=== PATIENT | male | born 1975 ===

== ENCOUNTER 2018-08-17 14:45 | Emergency (ER) | payer OTHER ==
[~2018-08-17] VITALS: Ht 172.7 cm; Wt 77.1 kg
== END 2018-08-17 20:26 | disposition home or self-care (01) ==
LOC: ER 14:45
DX: S43.084A Other dislocation of right shoulder joint, initial encounter (principal); X58.XXXA Exposure to other specified factors, initial encounter; Y93.89 Activity, other specified; Y92.89 Other specified places as the place of occurrence of the external cause; Y99.8 Other external cause status